=== PATIENT | female | born 1985 | race Caucasian/White ===

== ENCOUNTER 2017-01-28 11:28 | Emergency (ER) | payer OTHER ==
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
[~2017-01-28 11:28] MED LIST: BROMFED DM COU118 ML PO; FLEXERIL10 MG PO; IBUPROFEN; IBUPROFEN800 MG PO; MAGIC MOUTHWASH PO; MUCINEX100 MG/5 M PO; NAPROSYN500 MG PO; NO MEDICATIONS; PREDNISONE PO; PRILOSEC PO; PROAIR HFA8.5 GM INH; REGLAN10 MG PO; SUDAFED PO; TESSALON PERLE100 M1 PO
== END 2017-01-28 13:25 | disposition home or self-care (01) ==
LOC: SED 11:28
DX: S13.4XXA Sprain of ligaments of cervical spine, initial encounter (principal); S23.3XXA Sprain of ligaments of thoracic spine, initial encounter; S50.12XA Contusion of left forearm, initial encounter; J45.909 Unspecified asthma, uncomplicated; F17.210 Nicotine dependence, cigarettes, uncomplicated; V49.00XA Driver injured in collision with unspecified motor vehicles in nontraffic accident, initial encounter; Y92.410 Unspecified street and highway as the place of occurrence of the external cause
CPT/HCPCS: 29260; 29530; 72072; 72100; 73030; 73090; 73502; 73562; 99284; J0561